=== PATIENT | male | born 1955 | race Caucasian/White ===

== ENCOUNTER 2019-03-29 08:40 | Day surgery (SDC) | payer OTHER ==
--- NOTE | 2019-03-29 10:57 | NUR ---
RESTING IN [place] WITH HOB ELEVATED APPROX. 45 DEGREES. PATIENT EATING A SNACK AND DRINKING WATER. NO C/O VERBALIZED. BANDAIDE TO LOWER BACK C/D/IN WITH NO VISIBLE DRAINAGE, SWELLING, ERYTHEMA OR BRUISING NOTED. NEURO CHECKS CONSISTANT WITH PATIENT'S BASELINE.
== END 2019-03-29 23:10 | disposition home or self-care (01) ==
LOC: RAD 08:40 → CT 09:00 → RAD 23:10
DX: M41.9 Scoliosis, unspecified (principal); M51.9 Unspecified thoracic, thoracolumbar and lumbosacral intervertebral disc disorder; E78.5 Hyperlipidemia, unspecified; G89.4 Chronic pain syndrome; I10 Essential (primary) hypertension; B20 Human immunodeficiency virus [HIV] disease; Z88.8 Allergy status to other drugs, medicaments and biological substances; Z79.899 Other long term (current) drug therapy; Z87.891 Personal history of nicotine dependence
CPT/HCPCS: 62305; 72129; 72132; Q9966

== ENCOUNTER 2020-05-05 11:15 | Day surgery (SDC) | payer MEDICARE, OTHER ==
[~2020-05-05] VITALS: Ht 180.3 cm; Wt 73.1 kg
[2020-05-05] MEDS ORDERED: ASPI81CH PO (11:37)
[2020-05-05] MEDS ORDERED: DILT180 PO (11:37)
[2020-05-05] MEDS ORDERED: LANOXIN125 MCG PO (11:37)
[2020-05-05] MEDS ORDERED: OMEP20ER PO (11:38)
[2020-05-05] MEDS ORDERED: GABA800 (11:38)
[2020-05-05] MEDS ORDERED: ATOR40TA PO (11:38)
[2020-05-05] MEDS ORDERED: HYDACE10B PO (11:39)
[2020-05-05] MEDS ORDERED: BACL10 PO (11:39)
[2020-05-05] MEDS ORDERED: THERA-D2000 UNIT (11:40)
[2020-05-05] MEDS ORDERED: Vitamin B-121000 MCG PO (11:40)
[2020-05-05] MEDS ORDERED: FISH OIL 1,2001 EAC7 PO (11:40)
== END 2020-05-05 13:30 | disposition home or self-care (01) ==
LOC: ORSCSDS 11:15
PROVIDERS: Student in an Organized Health Care Education/Training Program
PROC: 0DB58ZX Excision of Esophagus, Via Natural or Artificial Opening Endoscopic, Diagnostic (ICD-10-PCS; principal; 2020-05-05 12:30)
PROC: 0DB48ZX Excision of Esophagogastric Junction, Via Natural or Artificial Opening Endoscopic, Diagnostic (ICD-10-PCS; principal; 2020-05-05 12:30)
PROC: 0DB68ZX Excision of Stomach, Via Natural or Artificial Opening Endoscopic, Diagnostic (ICD-10-PCS; principal; 2020-05-05 12:30)
DX: R13.10 Dysphagia, unspecified (principal); K22.70 Barrett's esophagus without dysplasia; K29.70 Gastritis, unspecified, without bleeding; I10 Essential (primary) hypertension; E78.5 Hyperlipidemia, unspecified; I48.0 Paroxysmal atrial fibrillation; D69.6 Thrombocytopenia, unspecified; Z79.82 Long term (current) use of aspirin; Z79.899 Other long term (current) drug therapy
CPT/HCPCS: 88305; 88342; J2704; J7120

== ENCOUNTER 2020-12-22 08:17 | Day surgery (SDC) | payer MEDICARE, OTHER ==
[~2020-12-22] VITALS: Ht 180.3 cm; Wt 72.9 kg
[~2020-12-22 08:17] MED LIST: ASPI81CH PO; ATOR40TA PO; BACL10 PO; DILT180 PO; FISH OIL 1,2001 EAC7 PO; GABA800; HYDACE10B PO; LANOXIN125 MCG PO; OMEP20ER PO; THERA-D2000 UNIT; Vitamin B-121000 MCG PO
--- NOTE | 2020-12-22 09:08 | NUR ---
12/22/20 0908 Ana M Varner CALL LIGHT WITHIN REACH
== END 2020-12-22 10:10 | disposition home or self-care (01) ==
LOC: ORSCSDS 08:17
PROVIDERS: Orthopaedic Surgery
PROC: 01N50ZZ Release Median Nerve, Open Approach (ICD-10-PCS; principal; 2020-12-22 09:30)
DX: G56.01 Carpal tunnel syndrome, right upper limb (principal); I10 Essential (primary) hypertension; E78.5 Hyperlipidemia, unspecified; I48.91 Unspecified atrial fibrillation; B20 Human immunodeficiency virus [HIV] disease; Z79.82 Long term (current) use of aspirin; Z79.899 Other long term (current) drug therapy
CPT/HCPCS: J0690; J2250; J2370; J2704; J3010; J7120

== ENCOUNTER → 2021-02-26 | Outpatient (CLI) | payer MEDICARE, OTHER ==
[2021-02-26 15:20] LABS: Percent Saturation 37.3 % (20.0-50.0)
[2021-02-27 08:08] LABS: HEP A AB, IGM Negative (Negative); HEP B CORE AB, IGM Negative (Negative)
== END | disposition home or self-care (01) ==
LOC: LAB SHORT 12:13
PROVIDERS: Physician Assistant
DX: F10.21 Alcohol dependence, in remission (principal); R53.83 Other fatigue; D69.6 Thrombocytopenia, unspecified
CPT/HCPCS: 82728; 83540; 83550; 86705; 86709

== ENCOUNTER → 2021-03-16 | Outpatient (CLI) | payer MEDICARE, OTHER | END | disposition home or self-care (01) | LOC: LAB SHORT 12:29 | DX: R53.82 Chronic fatigue, unspecified (principal) | CPT/HCPCS: 82306 ==

== ENCOUNTER 2021-06-29 08:41 | Day surgery (SDC) | payer MEDICARE, OTHER ==
[~2021-06-29] VITALS: Ht 180.3 cm; Wt 75.1 kg
== END 2021-06-29 11:23 | disposition home or self-care (01) ==
LOC: ORSCSDS 08:41
PROVIDERS: Orthopaedic Surgery
PROC: 0LN80ZZ Release Left Hand Tendon, Open Approach (ICD-10-PCS; principal; 2021-06-29 10:00)
PROC: 01N50ZZ Release Median Nerve, Open Approach (ICD-10-PCS; principal; 2021-06-29 10:00)
DX: G56.02 Carpal tunnel syndrome, left upper limb (principal); M65.312 Trigger thumb, left thumb; B20 Human immunodeficiency virus [HIV] disease; I48.91 Unspecified atrial fibrillation; J45.909 Unspecified asthma, uncomplicated; E78.5 Hyperlipidemia, unspecified; I10 Essential (primary) hypertension; Z79.899 Other long term (current) drug therapy; Z87.891 Personal history of nicotine dependence
CPT/HCPCS: J0171; J2250; J3010; J7120

== ENCOUNTER 2023-03-14 08:46 | Day surgery (SDC) | payer MEDICARE, OTHER ==
[~2023-03-14] VITALS: Ht 180.3 cm; Wt 68.4 kg
[2023-03-14] VITALS (20 sets, daily range): BP systolic 94–136; BP diastolic 58–81
[~2023-03-14 08:46] MED LIST changes: +Prinivil10 MG; +SENNA LAXATIVE8.6 MG; +TRIUMEQ 600-501 EACH
--- NOTE | 2023-03-14 10:30 | NUR ---
PT TO UNIT VIA WALKER. History, Chart, Medications and Allergies reviewed before start of procedure. Lungs clear T/O to Auscultation. Patient confirms NPO status and agrees with scheduled surgery. Pre-Op teaching done. Pt verbalizes understanding. Patient States Post-Procedure ride home has been arranged WITH ARMEN WINTER.
--- NOTE | 2023-03-14 11:10 | NUR ---
03/14/23 1110 Ambrocio Otero HISTORY, CHART, MEDICATIONS AND ALLERGIES REVIEWED BEFORE START OF PROCEDURE. PATIENT CONFIRMS NPO STATUS AND AGREES WITH SCHEDULED PROCEDURE. 3-LEAD EKG REVIEWED WITH PHYSICIAN PRIOR TO START OF PROCEDURE. MONITOR INTACT WITH CONTINUOUS PULSE OXIMETRY,CAPNOGRAPHY, 3-LEAD EKG, INTERMITTENT BP. SUPPLEMENTAL O2 TO BE TITRATED THROUGHOUT PROCEDURE TO MAINTAIN O2 SATURATION ABOVE 90%. PATIENT DETERMINED TO BE ASA APPROPRIATE FOR PROPOFOL SEDATION PRIOR TO START OF PROCEDURE BY
--- NOTE | 2023-03-14 12:25 | NUR ---
Discharge instructions reviewed with patient. Patient verbalizes understanding. Copy given to patient to take home. Patient States Post-Procedure ride home has been arranged with Deandre Cervantes. Discharged via wheelchair to private car for ride home.
== END 2023-03-14 12:20 | disposition home or self-care (01) ==
LOC: ORSCMMR 08:46 → ORD 09:30 → ORSCMMR 09:30
PROVIDERS: Internal Medicine Gastroenterology
PROC: 0DJD8ZZ Inspection of Lower Intestinal Tract, Via Natural or Artificial Opening Endoscopic (ICD-10-PCS; principal; 2023-03-14 09:30)
DX: Z86.010 Personal history of colon polyps (principal); K22.70 Barrett's esophagus without dysplasia; B20 Human immunodeficiency virus [HIV] disease; I48.91 Unspecified atrial fibrillation; D69.6 Thrombocytopenia, unspecified; Z87.891 Personal history of nicotine dependence; Z79.82 Long term (current) use of aspirin; Z79.899 Other long term (current) drug therapy
CPT/HCPCS: J2704; J7120

== ENCOUNTER 2023-07-05 03:14 | Day surgery (SDC) | payer MEDICARE, OTHER ==
[2023-07-05] MEDS ORDERED: NS 250 ML IV SCH (07:35)
[2023-07-05 08:10] VITALS: BP 102/64
[2023-07-05 08:30] VITALS: BP 116/68
[2023-07-05] MEDS ORDERED: C COMPLEX1000 M1 PO (08:59)
[2023-07-05] MEDS ORDERED: BACL10 PO (09:00)
[2023-07-05] MEDS ORDERED: Keflex250 MG PO (09:01)
[2023-07-05] MEDS ORDERED: HYDROCODONE-AC1 EA19 PO (09:02)
[2023-07-05] MEDS ORDERED: Hair, Skin & N1 EACH PO (09:04)
[2023-07-05] MEDS ORDERED: ACETAMINOPHEN500 M2 PO (09:05)
[2023-07-05] MEDS ORDERED: MIRALAX17 GM PO (09:06)
[2023-07-05 09:20] VITALS: BP 124/62
== END 2023-07-05 09:25 | disposition home or self-care (01) ==
LOC: ATC 03:14
DX: D69.6 Thrombocytopenia, unspecified (principal); B20 Human immunodeficiency virus [HIV] disease; M96.1 Postlaminectomy syndrome, not elsewhere classified; J45.909 Unspecified asthma, uncomplicated; K21.9 Gastro-esophageal reflux disease without esophagitis; E78.5 Hyperlipidemia, unspecified; M41.9 Scoliosis, unspecified
CPT/HCPCS: 36415; 36430; 86900; 86901; J7050; P9035

== ENCOUNTER → 2023-09-20 | Outpatient (CLI) | payer MEDICARE, OTHER ==
[~2023-09-20] MED LIST changes: +ACETAMINOPHEN500 M2 PO; +C COMPLEX1000 M1 PO; +HYDROCODONE-AC1 EA19 PO; +Hair, Skin & N1 EACH PO; +Keflex250 MG PO; +MIRALAX17 GM PO
[2023-09-20 15:22] LABS: BASOPHILS ABSOLUTE AUTO 0.02 K/mm3 (0.00-0.23); BASOPHILS PERCENT AUTO 0 % (0-2); EOSINOPHILS ABSOLUTE AUTO 0.06 K/mm3 (0.00-0.68); EOSINOPHILS PERCENT AUTO 1 % (0-6); Hematocrit 32.9 % (37.0-53.0); Hemoglobin 11.4 g/dL (13.5-17.5); IMMATURE GRAN ABSOLUTE AUTO 0.02 K/mm3 (0.00-0.10); IMMATURE GRAN PERCENT AUTO 0 % (0-1); LYMPHOCYTES ABSOLUTE AUTO 0.87 K/mm3 (0.84-5.20); LYMPHOCYTES PERCENT AUTO 18 % (21-46); MONOCYTES ABSOLUTE AUTO 0.48 K/mm3 (0.16-1.47); MONOCYTES PERCENT AUTO 10 % (4-13); Mean Corpuscular HGB 36.5 pg (26.0-34.0); Mean Corpuscular HGB Conc 34.7 g/dL (31.5-36.5); Mean Corpuscular Volume 105 fL (80-100); Mean Platelet Volume 12.5 fL (9.1-12.4); NEUTROPHILS ABSOLUTE AUTO 3.41 K/mm3 (1.96-9.15); NEUTROPHILS PERCENT AUTO 70 % (41-73); Platelet Count 61 K/mm3 (150-400); RDW Coefficient Variation 13.6 % (11.7-14.2); RDW Standard Deviation 52.7 fL (35.1-46.3); Red Blood Cell Count 3.12 M/mm3 (4.30-5.90); White Blood Cell Count 4.86 K/mm3 (4.00-11.30)
[2023-09-20 16:18] LABS: Albumin, Blood 4.3 g/dL (3.4-5.0); Albumin/Globulin Ratio 1.5 (0.8-1.8); Bilirubin, Total 0.9 mg/dL (0.1-1.0); Bun/Creatinine Ratio 28.5 (12.0-20.0); Calcium, Blood 9.5 mg/dL (8.5-10.1); Creatinine, Blood 1.3 mg/dL (0.60-1.20); Globulin, Blood 2.8 g/dL (2.2-4.0); Potassium, Blood 5.6 mmol/L (3.5-5.5); Total Protein, Blood 7.1 g/dL (6.4-8.2)
== END ==
LOC: LAB 12:48 → LAB SHORT 12:48
DX: N28.9 Disorder of kidney and ureter, unspecified (principal)
CPT/HCPCS: 80053; 85025

== ENCOUNTER → 2023-12-29 | Outpatient (CLI) | payer MEDICARE, OTHER ==
[2023-12-29 17:17] LABS: Hematocrit 37.5 % (37.0-53.0); Hemoglobin 13.5 g/dL (13.5-17.5); Mean Corpuscular HGB 36.7 pg (26.0-34.0); Mean Corpuscular Volume 102 fL (80-100); Mean Platelet Volume 12.5 fL (9.1-12.4); Platelet Count 71 K/mm3 (150-400); RDW Coefficient Variation 13.2 % (11.7-14.2); RDW Standard Deviation 50.4 fL (35.1-46.3); Red Blood Cell Count 3.68 M/mm3 (4.30-5.90); White Blood Cell Count 4.14 K/mm3 (4.00-11.30)
[2023-12-29 17:40] LABS: BASOPHILS PERCENT MAN 0 % (0-2); EOSINOPHILS ABSOLUTE MAN 0.04 K/mm3 (0.00-0.68); EOSINOPHILS PERCENT MAN 1 % (0-6); LYMPHOCYTES ABSOLUTE MAN 1.07 K/mm3 (0.84-5.20); LYMPHOCYTES PERCENT MAN 26 % (21-46); MONOCYTES ABSOLUTE MAN 0.49 K/mm3 (0.16-1.47); MONOCYTES PERCENT MAN 12 % (4-13); NEUTROPHILS ABSOLUTE MAN 2.52 K/mm3 (1.96-9.15); SEG NEUTROPHILS PERCENT MAN 61 % (41-73); TOTAL CELLS COUNTED 100
[2023-12-29 18:24] LABS: Bun/Creatinine Ratio 30.8 (12.0-20.0); Calcium, Blood 9.8 mg/dL (8.5-10.1); Creatinine, Blood 1.17 mg/dL (0.60-1.20); Percent Saturation 22.5 % (20.0-50.0); Potassium, Blood 4.6 mmol/L (3.5-5.5)
== END | disposition home or self-care (01) ==
LOC: LAB SHORT 15:42 → LAB 15:42
DX: D50.9 Iron deficiency anemia, unspecified (principal); R35.1 Nocturia; R39.11 Hesitancy of micturition; Z86.39 Personal history of other endocrine, nutritional and metabolic disease
CPT/HCPCS: 80048; 82728; 83540; 83550; 85025

== ENCOUNTER 2024-07-09 03:31 | Day surgery (SDC) | payer MEDICARE, OTHER ==
[2024-07-09] MEDS ORDERED: NS 250 ML IV SCH (16:30)
[2024-07-09 16:53] VITALS: BP 113/74
[2024-07-09 18:43] LABS: BASOPHILS ABSOLUTE AUTO 0.02 K/mm3 (0.00-0.23); BASOPHILS PERCENT AUTO 1 % (0-2); EOSINOPHILS ABSOLUTE AUTO 0.03 K/mm3 (0.00-0.68); EOSINOPHILS PERCENT AUTO 1 % (0-6); Hematocrit 32.8 % (37.0-53.0); Hemoglobin 11.6 g/dL (13.5-17.5); IMMATURE GRAN ABSOLUTE AUTO 0.02 K/mm3 (0.00-0.10); IMMATURE GRAN PERCENT AUTO 1 % (0-1); LYMPHOCYTES ABSOLUTE AUTO 0.82 K/mm3 (0.84-5.20); LYMPHOCYTES PERCENT AUTO 26 % (21-46); MONOCYTES ABSOLUTE AUTO 0.37 K/mm3 (0.16-1.47); MONOCYTES PERCENT AUTO 12 % (4-13); Mean Corpuscular HGB 36.3 pg (26.0-34.0); Mean Corpuscular HGB Conc 35.4 g/dL (31.5-36.5); Mean Corpuscular Volume 103 fL (80-100); Mean Platelet Volume 10.4 fL (9.1-12.4); NEUTROPHILS ABSOLUTE AUTO 1.95 K/mm3 (1.96-9.15); NEUTROPHILS PERCENT AUTO 61 % (41-73); Platelet Count 87 K/mm3 (150-400); RDW Coefficient Variation 13.2 % (11.7-14.2); RDW Standard Deviation 49.7 fL (35.1-46.3); White Blood Cell Count 3.21 K/mm3 (4.00-11.30)
== END 2024-07-09 17:38 | disposition home or self-care (01) ==
LOC: ATC 03:31
PROVIDERS: Physician Assistant
DX: D69.6 Thrombocytopenia, unspecified (principal); M48.062 Spinal stenosis, lumbar region with neurogenic claudication; M54.16 Radiculopathy, lumbar region; G89.29 Other chronic pain; J45.909 Unspecified asthma, uncomplicated; J21.9 Acute bronchiolitis, unspecified; E78.5 Hyperlipidemia, unspecified; Z21 Asymptomatic human immunodeficiency virus [HIV] infection status; I10 Essential (primary) hypertension; Z87.891 Personal history of nicotine dependence; Z79.01 Long term (current) use of anticoagulants; Z79.899 Other long term (current) drug therapy
CPT/HCPCS: 36415; 36430; 85025; 86850; 86900; 86901; 86923; P9035

== ENCOUNTER 2024-08-16 13:07 | Emergency (ER) | payer MEDICARE, OTHER ==
[~2024-08-16] VITALS: Ht 180.3 cm; Wt 74.8 kg
[~2024-08-16 13:07] MED LIST changes: -SENNA LAXATIVE8.6 MG; +SENNA LAXATIVE8.6 MG PO; -THERA-D2000 UNIT; +THERA-D2000 UNIT PO; -TRIUMEQ 600-501 EACH; +TRIUMEQ 600-501 EACH PO
[2024-08-16 14:26] LABS: BASOPHILS ABSOLUTE AUTO 0.01 K/mm3 (0.00-0.23); BASOPHILS PERCENT AUTO 0 % (0-2); EOSINOPHILS ABSOLUTE AUTO 0.05 K/mm3 (0.00-0.68); EOSINOPHILS PERCENT AUTO 1 % (0-6); Hematocrit 34.3 % (37.0-53.0); Hemoglobin 11.6 g/dL (13.5-17.5); IMMATURE GRAN ABSOLUTE AUTO 0.03 K/mm3 (0.00-0.10); IMMATURE GRAN PERCENT AUTO 1 % (0-1); LYMPHOCYTES ABSOLUTE AUTO 1.01 K/mm3 (0.84-5.20); LYMPHOCYTES PERCENT AUTO 25 % (21-46); MONOCYTES ABSOLUTE AUTO 0.39 K/mm3 (0.16-1.47); MONOCYTES PERCENT AUTO 10 % (4-13); Mean Corpuscular HGB 34.4 pg (26.0-34.0); Mean Corpuscular HGB Conc 33.8 g/dL (31.5-36.5); Mean Corpuscular Volume 102 fL (80-100); Mean Platelet Volume 11.3 fL (9.1-12.4); NEUTROPHILS ABSOLUTE AUTO 2.59 K/mm3 (1.96-9.15); NEUTROPHILS PERCENT AUTO 64 % (41-73); Platelet Count 76 K/mm3 (150-400); RDW Coefficient Variation 13.7 % (11.7-14.2); RDW Standard Deviation 51.5 fL (35.1-46.3); Red Blood Cell Count 3.37 M/mm3 (4.30-5.90); White Blood Cell Count 4.08 K/mm3 (4.00-11.30)
[2024-08-16 14:42] LABS: Albumin, Blood 4.1 g/dL (3.4-5.0); Albumin/Globulin Ratio 1.3 (0.8-1.8); Bun/Creatinine Ratio 18.6 (12.0-20.0); Calcium, Blood 9.4 mg/dL (8.5-10.1); Creatinine, Blood 1.13 mg/dL (0.60-1.20); Globulin, Blood 3.1 g/dL (2.2-4.0); Potassium, Blood 4.4 mmol/L (3.5-5.5); Total Protein, Blood 7.2 g/dL (6.4-8.2)
[2024-08-16] MEDS ORDERED: ACETAMINOPHEN500 M2 PO (15:34)
[2024-08-16] MEDS ORDERED: Bisoprolol Fumar5 MG PO (15:34)
[2024-08-16] MEDS ORDERED: FISH OIL PO (15:35)
[2024-08-16] MEDS ORDERED: TAMSULOSIN HCL0.4 M1 PO (15:36)
[2024-08-16] MEDS ORDERED: DOCU100 PO (15:38)
[2024-08-16 16:05] LABS: International Normalized Ratio 1.04; Prothrombin Time Results 11.4 Sec (9.7-11.5)
[2024-08-16 17:21] VITALS: BP 143/84
== END 2024-08-16 17:30 | disposition home or self-care (01) ==
LOC: ER 13:07
PROVIDERS: Physician Assistant
DX: H53.8 Other visual disturbances (principal); Z79.899 Other long term (current) drug therapy; Z88.8 Allergy status to other drugs, medicaments and biological substances; Z79.82 Long term (current) use of aspirin; Z79.2 Long term (current) use of antibiotics; Z79.01 Long term (current) use of anticoagulants; I48.91 Unspecified atrial fibrillation; Z87.891 Personal history of nicotine dependence
CPT/HCPCS: 70450; 80053; 85025; 85610; 85730; 93005; 93010; 99284-25